=== PATIENT | male | born 1990 | race Caucasian/White ===

== ENCOUNTER 2017-02-18 09:42 | Emergency (ER) | payer SELFPAY ==
[~2017-02-18] VITALS: Ht 182.9 cm; Wt 82.1 kg
[2017-02-18 11:13] LABS: Basophils # (auto) 0 uL; Basophils % (auto) 0.3 % (0.0-2.0); CONDITION Y; Eosinophils # (auto) 0 uL; Eosinophils % (auto) 0.2 % (0.0-7.0); Hematocrit 47.2 % (41.0-53.0); Hemoglobin 16.2 g/dL (13.5-17.5); Lymphocytes # (auto) 0.9 uL; Lymphocytes % (auto) 18.6 % (10.0-50.0); Mean Corpuscular Hemoglobin 30.1 pg (28.0-32.0); Mean Corpuscular Hgb Conc. 34.3 g/dL (32.0-36.0); Mean Corpuscular Volume 87.9 fL (80.0-100.0); Mean Platelet Volume 10.3 fL (7.4-10.4); Monocytes # (auto) 0.3 uL; Monocytes % (auto) 6.1 % (0.0-12.0); Neutrophils # (auto) 3.8 uL; Neutrophils % (auto) 74.8 % (37.0-80.0); Platelet Count (auto) 213 10^3/uL (140-450); Red Cell Distribution Width 12.9 % (11.6-16.0); White Blood Cell 5.1 10^3/uL (4.4-10.8)
[2017-02-18] MEDS ORDERED: LORazepam 2MG/ML-1ML VIAL IV ONE (11:15)
[2017-02-18 11:35] LABS: Albumin 4.6 g/dL (3.4-5.0); BUN/Creatinine Ratio 12.5; Bilirubin, Total 1.9 mg/dL (0.2-1.0); Calcium 9.7 mg/dL (8.5-10.1); Potassium 3.3 mmol/L (3.5-5.1); Total Protein 8.1 g/dL (6.4-8.2)
[2017-02-18 13:22] LABS: Urine RBC None Seen /hpf (0 - 3)
[2017-02-18 13:32] LABS: Urine Bilirubin Negative (Negative); Urine Blood Negative /uL (Negative); Urine Color Yellow (Yellow); Urine Glucose Normal (Normal); Urine Ketone Negative (Negative); Urine Mucus FEW (None Seen); Urine Nitrite Negative (Negative); Urine Urobilinogen Normal (Negative)
[2017-02-18 13:33] VITALS: BP 128/63
[2017-02-18] MEDS ORDERED: POTASSIUM CHL 10% (20 MEQ/15ML) ORAL SOLN PO ONE (14:15)
== END 2017-02-18 14:37 | disposition home or self-care (01) ==
LOC: ER 09:42
DX: E87.6 Hypokalemia (principal); F12.10 Cannabis abuse, uncomplicated; F17.210 Nicotine dependence, cigarettes, uncomplicated
CPT/HCPCS: 36415; 80053; 80307; 81001; 85025; 93005; 96374; 99285; J2060; J7030